=== PATIENT | female | born 1980 | race Caucasian/White ===

== ENCOUNTER 2016-10-21 01:43 | Emergency (ER) | payer OTHER ==
[~2016-10-21] VITALS: Ht 165.1 cm; Wt 56.4 kg
[2016-10-21 01:48] VITALS: BP 113/72; PULSE 72; RESP 16; O2SAT 96
--- NOTE | 2016-10-21 01:48 | ED.REPORT ---
HPI-Extremity Problem Lower Date of Service Oct 21, 2016 ED Provider: Dr. Raul Casper D.O. The patient is a healthy 35 year old female who presents to the ED with a left thigh crush injury onset approximately ten days ago. The patient stepped through a floor and developed a hematoma which has steadily increased in size. Now, she has worsening pain and swelling in her lateral thigh with radiation down the leg. Today the patient developed a palpable cord in her posterior thigh. She denies fever, chest pain, SOB, nausea, vomiting, or other symptoms. Nursing Notes Stated Complaint: LEFT LEG PAIN/INJURY Chief Complaint: Extremity Trauma Nursing Notes Reviewed: Yes Allergies: Coded Allergies: metoclopramide (Verified Allergy, Intermediate, anxiety, 03/07/14) General Time Seen by MD: 01:46 Chief Complaint Thigh injury left Hx Obtained From: Patient Arrived By: Walk-in Onset Occurred: More than a week ago... (Approximately ten days ago) Symptom Duration: Since onset Caused by: Crushing injury Location: : Thigh left Quality: Painful Severity: Current: Moderate Severity: Maximum: Moderate Pertinent Negative: Relieved by nothing Immunizations: All up to date Recent Healthcare: No recent doctor visit Past Medical History Past Medical History Generally healthy. She has received the immunization series for hepatitis B. 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 Respiratory: Denies: Non-productive cough, Shortness of breath Cardiovascular: Denies: Chest pain GI: Denies: Diarrhea, Nausea, Vomiting Physical Exam Initial Vital Signs Vital Signs (First) Date Time Temp Pulse Resp B/P Pulse Ox O2 Delivery O2 Flow Rate FiO2 10/21/16 01:48 38.0 72 16 113/72 96 Room Air Initial VS: Reviewed Head / Eyes: Atraumatic, Normocephalic ENT: Conjunctiva normal, No scleral icterus Neck: Supple, Full range of motion Respiratory: Breath sounds normal, Clear to auscultation, No respiratory distress Cardiovascular: Regular rate & rhythm, Heart sounds normal Skin: Warm, Dry, No cyanosis Neurologic: Alert, Oriented, Nonfocal Psychiatric: Mood/affect normal, Behavior normal, Normal thought content Lower Extremity / Pelvis / MS: Full range of motion Left Leg / Calf: Positive: Swelling present... 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 Lab Results Interpretation Result Diagram: 10/21/16 0200 Test 10/21/16 02:00 White Blood Count 8.3th/mm3 (3.8-10.1) Red Blood Count 3.97mil/mm3 (3.90-5.20) Hemoglobin 13.1g/dL (12.0-15.6) Hematocrit 39.4% (35.0-46.0) Mean Corpuscular Volume 99.2fL (81-100) Mean Corpuscular Hemoglobin 33.0pg (27.0-35.0) Mean Corpuscular Hemoglobin Concent 33.2% (32.0-37.0) Red Cell Distribution Width 12.1% (12.3-15.4) Platelet Count 238bil/L (150-400) Neutrophils (%) (Auto) 58.3% (40-74) Lymphocytes (%) (Auto) 28.6% (14-46) Monocytes (%) (Auto) 10.9% (4-12) Eosinophils (%) (Auto) 1.6% (0-5) Basophils (%) (Auto) 0.5% (0-3) Hold Mensah Top Tube Received (Received) Re-Eval/Medical Decision Med Decision/Clinical Course DVT ruled out by ultrasound. Normal white blood cell count and hemoglobin. Metabolic panel pending at the time of this dictation. This young lady has suffered significant crush injury with hematoma and contusion. She will be treated with a short course of Walcott. Routine opiate warnings given. Outpatient follow-up recommended. Watch closely for signs and symptoms of infection. Source of Hx: Old records Re-Evaluation/Progress #1: Time of Eval: 01:58 Patient Status: Condition improved Re-Evaluation/Progress Note: Patient rechecked. Additional physical exam performed. Re-Evaluation/Progress #2: Time of Eval: 02:15 Patient Status: Condition improved Re-Evaluation/Progress Note: Discussed with patient lab and US results, diagnosis, and plan for discharge. Follow-up and return to the ER instructions given. Patient agrees with plan for care and all questions were addressed. Counseled Regarding: Diagnosis, Lab results, Need for follow-up, When/why to return to ED Discharge & Departure Impression: Primary Impression: Hematoma of left lower extremity Encounter type: initial encounter Qualified Code: S80.12XA - Contusion of left lower leg, initial encounter Additional Impression: Crushing injury of left leg Encounter type: initial encounter Qualified Code: S87.82XA - Crushing injury of left lower leg, initial encounter Disposition: Home Discharge Condition All VS Reviewed: Yes Condition: Improved Patient Instructions: Crush Injury (ED), Hematoma (ED) Additional Instructions: Your US did not show a DVT. Elevate your leg as much as possible. 1-2 Walcott every six hours as needed for pain. Do not drink alcohol, drive, or consume acetaminophen while taking Walcott. Zofran as directed for nausea. Watch for signs of infection: pain, redness, swelling, discharge, fever. Return to the ER right away if any of these occur or if you develop any new or worsening symptoms. Follow-up with your primary care provider as needed. Referrals: [facility] (PCP) [facility] Jayashree Attestation Portions of this note were transcribed by Doretha Hobson. I, Dr. Casper, personally performed the history, physical exam, and medical decision-making; I reviewed and confirmed the accuracy of the information in the transcribed note. Signed by: Jayashree Kelley, 10/21/2016, 02:35 copies to: [facility] Raul Casper DO Oct 21, 2016 01:48 DORETHA HOBSON Oct 21, 2016 02:00
[2016-10-21] MEDS ORDERED: _HYDROcodone/APAP 5-325 mg Tablet PO PRN (01:55)
[2016-10-21] MEDS ORDERED: _Ondansetron ODT 4 mg Tablet PO PRN (01:55)
[2016-10-21 02:07] LABS: BASOPHILS % (AUTO) 0.5 % (0-3); EOSINOPHILS % (AUTO) 1.6 % (0-5); MONOCYTES % (AUTO) 10.9 % (4-12); Mean Corpuscular Volume 99.2 fL (81-100); NEUTROPHILS % (AUTO) 58.3 % (40-74); Platelet Count 238 bil/L (150-400)
--- NOTE | 2016-10-21 08:57 | DRSVH ---
PROCEDURE: US VEINOUS LEG DUPLEX UNILATERAL, LEFT INDICATIONS: crush injury, pain and swelling, palp cord TECHNIQUE: Real-time imaging, as well as color and pulse Doppler interrogation, were performed of the lower extr emity deep veins from the inguinal ligament to the popliteal fossa. COMPARISON: None. FINDINGS: The deep veins are normally compressible, and free of intraluminal thrombus. Color and pu lse Doppler demonstrate normal phasic intraluminal flow. There is normal augmentation response to di stal compression maneuver. IMPRESSION: No deep venous thrombosis identified within the left lower extremity. Dictated by: Ramone Norris [facility] Interpreted: Claudia King MD on 10/21/2016 at 8:55 Transcribed by: JONATHAN on 10/21/2016 at 8:56 Approved by: Claudia King MD, PhD on 10/21/2016 at 11:26
== END 2016-10-21 02:20 | disposition home or self-care (01) ==
LOC: SED 01:43
DX: S77.12XA Crushing injury of left thigh, initial encounter (principal); W13.3XXA Fall through floor, initial encounter; Y92.9 Unspecified place or not applicable; Y93.89 Activity, other specified; Y99.8 Other external cause status; F17.200 Nicotine dependence, unspecified, uncomplicated; Z88.8 Allergy status to other drugs, medicaments and biological substances